=== PATIENT | male | born 1980 | race Caucasian/White ===

== ENCOUNTER 2017-01-11 00:34 | Emergency (ER) | payer OTHER ==
[~2017-01-11 00:34] MED LIST: PENICILLIN PO; PENICILLIN V P500 MG PO; ULTRAM PO
[2017-01-11 02:08] LABS: AMPHETAMINE POS (NEG); BARBITURATES NEG (NEG); BENZODIAZEPINES NEG (NEG); COCAINE NEG (NEG); MARIJUANA POS (NEG); OPIATES POS (NEG); TRICYCLIC ANTIDEPRESSANTS NEG (NEG); U METHADONE NEG (NEG)
[2017-01-11 02:25] LABS: ALCOHOL BLOOD <5 mg/dL (0); BLOOD UREA NITROGEN 14 mg/dL (9-23); BUN/CREATININE RATIO 10.76; CALCIUM SERUM 8.4 mg/dL (8.4-10.2); CARBON DIOXIDE 22 mmol/L (22-31); CHLORIDE 110 mmol/L (100-111); CPK (CREATINE PHOSPHOKINASE) 670 IU/L (36-174); CREATININE SERUM 1.3 mg/dL (0.6-1.4); GLOM FILT RATE Estimated 70.7 mL/min (>60); GLUCOSE FASTING 104 mg/dL (70-110); POTASSIUM 3.7 mmol/L (3.5-5.1); SODIUM 139 mmol/L (135-145)
== END 2017-01-11 09:50 | disposition home or self-care (01) ==
LOC: CED 00:34
PROVIDERS: Emergency Medicine
DX: F12.10 Cannabis abuse, uncomplicated (principal); F15.10 Other stimulant abuse, uncomplicated; F17.210 Nicotine dependence, cigarettes, uncomplicated; Z86.73 Personal history of transient ischemic attack (TIA), and cerebral infarction without residual deficits
CPT/HCPCS: 51701; 80048; 80307; 82550; 96361; 96374; 99284; G0480; J2060